=== PATIENT | male | born 1960 | race Caucasian/White ===

== ENCOUNTER 2017-09-19 12:52 | Outpatient (CLI) | payer MEDICARE ==
--- NOTE | 2017-09-19 13:29 | RAD ---
LEFT KNEE FOUR VIEWS: History: Anterior knee pain x 7 days. Comparison: None. FINDINGS: Moderate sized joint effusion. No fracture or malalignment. Mild prepatellar soft tissue edema. There appears to be a surgical clip along the medial soft tissues . IMPRESSION: Moderate sized joint effusion greater than would be expected for the amount of degenerative disease. Internal derangement is suspected. MRI non-emergently recommended. POS: [facility]
== END 2017-09-19 12:53 | disposition home or self-care (01) ==
LOC: MADRAD 12:52
PROVIDERS: ATTEND Family Medicine
DX: M25.562 Pain in left knee (principal); M25.462 Effusion, left knee

== ENCOUNTER 2018-03-10 14:34 | Outpatient (CLI) | payer MEDICARE ==
[2018-03-10 15:03] LABS: #Basophils 0.1 thou/uL (0.0-0.2); #Eosinphils 0.1 thou/uL (0.0-0.7); #Lymphocytes 2.8 thou/uL (1.20-3.40); #Monocytes 0.4 thou/uL (0.11-0.59); #Neutrophils 4.5 thou/uL (1.40-6.50); %Basophils 0.8 % (0.0-1.0); %Eosinophils 0.8 % (0.0-10.0); %Lymphocytes 35.4 % (21.0-51.0); %Monocytes 5.2 % (0.0-10.0); %Neutrophils 57.7 % (42.0-75.0); Hemoglobin 14.3 g/dL (14.0-18.0); Mean Corpuscular HGB CONC 33.5 g/dL (32.0-36.0); Mean Corpuscular Hemoglobin 29.2 pg (27.0-31.0); Mean Corpuscular Volume 87.2 fL (78.0-98.0); Mean Platelet Volume 5.6 fL (7.4-10.4); Platelet Count 193 thou/uL (130-400); RBC Distribution Width 11.4 % (11.5-14.5); White Blood Cell (WBC) Count 7.8 thou/uL (4.8-10.8)
[2018-03-10 15:23] LABS: Anion Gap 20 mmol/L (10-20); BUN (Urea Nitrogen) 10 mg/dL (8.4-25.7); Calc. Creatinine Clearance 0 mL/min (70-130); Calcium 9.5 mg/dL (7.8-10.44); Carbon Dioxide 18 mmol/L (22-29); Chloride 104 mmol/L (98-107); Estimated GFR-MDRD 82; Glucose 131 mg/dL (70-105); Sodium 138 mmol/L (136-145)
== END 2018-03-10 14:35 | disposition home or self-care (01) ==
LOC: MADLABBHPM 14:34
PROVIDERS: ATTEND Internal Medicine Cardiovascular Disease
DX: I25.5 Ischemic cardiomyopathy (principal)
CPT/HCPCS: 36415; 80048; 83880; 85025

== ENCOUNTER 2021-03-23 12:37 | Outpatient (CLI) | payer MEDICARE ==
[2021-03-23 13:21] LABS: Anion Gap 16 mmol/L (10-20); BUN (Urea Nitrogen) 14 mg/dL (8.4-25.7); Calc. Creatinine Clearance 0 mL/min (70-130); Calcium 9.2 mg/dL (7.8-10.44); Carbon Dioxide 22 mmol/L (22-29); Chloride 105 mmol/L (98-107); Glucose 101 mg/dL (70-105); Magnesium 1.6 mg/dL (1.6-2.6); Potassium 3.9 mmol/L (3.5-5.1); Sodium 139 mmol/L (136-145)
[2021-03-23 13:24] LABS: CKMB 1.9 ng/mL (0-6.6); Troponin I Less than 0.010 ng/mL (< 0.028)
== END 2021-03-23 12:38 | disposition home or self-care (01) ==
LOC: MADLAB 12:37
PROVIDERS: ATTEND Family Medicine
DX: R07.9 Chest pain, unspecified (principal)
CPT/HCPCS: 36415; 71046; 80048; 82553; 83735; 84484

== ENCOUNTER 2021-12-27 13:47 | Outpatient (CLI) | payer MEDICARE | END 2021-12-27 13:48 | disposition home or self-care (01) | LOC: MADRAD 13:47 | PROVIDERS: ATTEND Family Medicine | DX: M25.562 Pain in left knee (principal) ==

== ENCOUNTER 2024-08-05 13:57 | Emergency (ER) | payer OTHER ==
[2024-08-05] MEDS ORDERED: Boostrix 0.5 ML (Tdap) VIAL (>/=7 yrs of age) ONE (14:26)
[2024-08-05] MEDS ORDERED: Bacitracin 1 PK ONE (14:52)
== END 2024-08-05 15:22 | disposition home or self-care (01) ==
LOC: MADERS 13:57
DX: S00.01XA Abrasion of scalp, initial encounter (principal); S50.311A Abrasion of right elbow, initial encounter; I11.0 Hypertensive heart disease with heart failure; I50.9 Heart failure, unspecified; E11.40 Type 2 diabetes mellitus with diabetic neuropathy, unspecified; W19.XXXA Unspecified fall, initial encounter; Z23 Encounter for immunization
CPT/HCPCS: 70450; 90471; 90715

== ENCOUNTER 2025-07-27 16:21 | Emergency (ER) | payer OTHER ==
[2025-07-27] MEDS ORDERED: HYDROcodone/Acetaminophen 5/325 mg Tablet ONE (18:03)
== END 2025-07-27 18:10 | disposition home or self-care (01) ==
LOC: MADERS 16:21
DX: R55 Syncope and collapse (principal); S90.32XA Contusion of left foot, initial encounter; S20.411A Abrasion of right back wall of thorax, initial encounter; E11.42 Type 2 diabetes mellitus with diabetic polyneuropathy; I11.0 Hypertensive heart disease with heart failure; I50.9 Heart failure, unspecified; E11.9 Type 2 diabetes mellitus without complications; E78.5 Hyperlipidemia, unspecified; Z79.82 Long term (current) use of aspirin; Z79.4 Long term (current) use of insulin; Z79.84 Long term (current) use of oral hypoglycemic drugs; Z79.01 Long term (current) use of anticoagulants; Z79.899 Other long term (current) drug therapy; V87.8XXA Person injured in other specified noncollision transport accidents involving motor vehicle (traffic), initial encounter
CPT/HCPCS: 70450; 72125

== ENCOUNTER 2025-08-02 14:44 | Outpatient (CLI) | payer OTHER | END 2025-08-02 14:45 | disposition home or self-care (01) | LOC: MADRAD 14:44 | PROVIDERS: ATTEND Family Medicine | DX: M79.672 Pain in left foot (principal) ==